=== PATIENT | female | born 1935 | race Caucasian/White ===

== ENCOUNTER 2017-02-13 11:58 | Outpatient (CLI) | payer MEDICARE, OTHER | END 2017-02-13 11:59 | disposition home or self-care (01) | DX: M19.041 Primary osteoarthritis, right hand (principal); M79.644 Pain in right finger(s) ==

== ENCOUNTER 2017-06-06 12:36 | Outpatient (CLI) | payer MEDICARE, OTHER ==
--- NOTE | 2017-06-09 07:31 | DEXA Report ---
DEXA SCAN: 06/06/2017 CLINICAL INDICATION: Postmenopausal. TECHNIQUE: Dual energy x-ray absorptiometry (DXA) was performed on a [employer] system. Regions measured are the AP spine, femoral neck, and, if needed, forearm. COMPARISON: None. In accordance with the International Society for Clinical Densitometry (ISCD) guidelines, data from previous exams may be reanalyzed using current recommendations and techniques. This is done to allow a more accurate basis for comparison with the current study. FINDINGS: The data for the lumbar spine is as follows: REGION BMD (g/cm/cm) T-SCORE Z-SCORE L1 1.102 -0.2 2.1 L2 1.151 -0.4 1.9 L3 1.047 -1.3 1.1 L4 1.143 -0.5 1.9 TOTAL 1.109 -0.6 1.8 NOTE: All evaluable vertebrae are used for classification. The data for the hip is as follows: REGION BMD (g/cm/cm) T-SCORE Z-SCORE Neck 0.908 -0.9 1.7 TOTAL 0.818 -1.5 1.0 NOTE: The femoral neck or total proximal femur, whichever is lowest, is used for classification. IMPRESSION: THE WHO CLASSIFICATION BASED ON THE INTERNATIONAL REFERENCE STANDARD IS OSTEOPENIA. THE FRACTURE RISK IS INCREASED. RECOMMENDATION: Patients with diagnosis of osteoporosis or osteopenia should have regular bone mineral density assessment. For those eligible for Medicare, routine testing is allowed once every 2 years. Testing frequency can be increased for patients who have rapidly progressing disease or for those who are receiving medical therapy to restore bone mass. COMMENT: World Health Organization (WHO) definitions for osteoporosis and osteopenia: NORMAL BMD: T-score at -1.0 or higher, fracture risk is low. OSTEOPENIA BMD: T-score between -1.0 and -2.5, fracture risk is increased. OSTEOPOROSIS BMD: T-score at -2.5 or lower, fracture risk high. National Osteoporosis Foundation recommends: 1. Obtain adequate dietary calcium (at least 1200 mg per day) and vitamin D (400 -800 international units per day). 2. Participate, as appropriate, in regular weightbearing and muscle- strengthening exercise. 3. Avoid tobacco use and reduce alcohol and caffeine intake. 4. For more detailed information see the website at www.NOF.org. MTDD
== END 2017-06-06 12:37 | disposition home or self-care (01) ==
LOC: DI 12:36
PROVIDERS: ATTEND Physician Assistant
DX: N95.8 Other specified menopausal and perimenopausal disorders (principal)
CPT/HCPCS: 77080

== ENCOUNTER 2017-06-06 12:36 | Outpatient (CLI) | payer MEDICARE, OTHER ==
--- NOTE | 2017-06-09 13:09 | Mammography Report ---
DIGITAL SCREENING MAMMOGRAM: 06/06/2017 CLINICAL INDICATION: An 81-year-old for screening. COMPARISON: 02/2016, 01/2016, 12/2014, 12/2013 TECHNIQUE: Routine CC and MLO projections were obtained of the breasts. FINDINGS: The breasts again demonstrate scattered fibroglandular densities bilaterally. There is a possible developing asymmetry in the right upper outer central breast. Further evaluation with spot compression views and possible ultrasound is recommended. No mammographically suspicious findings ar e appreciated in the left breast. IMPRESSION: INCOMPLETE EXAMINATION. RECOMMENDATION: Additional evaluation of the right breast as above. BIRADS CATEGORY 0 - INCOMPLETE. STANDARD QUALIFYING STATEMENTS 1. This examination was reviewed with the aid of Computer-Aided Detection (CAD). 2. A negative or benign imaging report should not delay biopsy if clinically suspicious findings are present. Consider surgical consultation if warranted. More than 5% of cancers are not identified by i maging. 3. Dense breasts may obscure an underlying neoplasm. JOB #: [id number] EXT JOB #:[id number]
== END 2017-06-06 12:37 | disposition home or self-care (01) ==
LOC: DI 12:36
PROVIDERS: ATTEND Physician Assistant
DX: Z12.31 Encounter for screening mammogram for malignant neoplasm of breast (principal)
CPT/HCPCS: 77067

== ENCOUNTER 2017-07-07 14:21 | Outpatient (CLI) | payer MEDICARE, OTHER ==
--- NOTE | 2017-07-07 14:53 | Mammography Report ---
DIGITAL DIAGNOSTIC RIGHT MAMMOGRAM: 07/07/2017 CLINICAL INDICATION: Possible asymmetry on screening. TECHNIQUE: Right true lateral and spot compression views. COMPARISON: 06/06/2017, 03/01/2016, 02/13/2016, 01/12/2015, 01/11/2014 FINDINGS: The right breast again demonstrates scattered fibroglandular densities. The questioned as ymmetry in the right upper outer central breast does not persist on additional compression. No under lying mass lesion or architectural distortion is seen. IMPRESSION: NEGATIVE EXAMINATION. RECOMMENDATION: Routine annual screening unless otherwise clinically indicated. BIRADS CATEGORY 1 - NEGATIVE. STANDARD QUALIFYING STATEMENTS 1. This examination was reviewed with the aid of Computer-Aided Detection (CAD). 2. A negative or benign imaging report should not delay biopsy if clinically suspicious findings are present. Consider surgical consultation if warranted. More than 5% of cancers are not identified by i maging. 3. Dense breasts may obscure an underlying neoplasm. JOB #: [id number] EXT JOB #:
== END 2017-07-07 14:22 | disposition home or self-care (01) ==
LOC: DI 14:21
PROVIDERS: ATTEND Physician Assistant
DX: R92.8 Other abnormal and inconclusive findings on diagnostic imaging of breast (principal)

== ENCOUNTER 2017-07-15 14:12 | Outpatient (CLI) | payer MEDICARE, OTHER ==
--- NOTE | 2017-07-15 17:58 | XRAY Report ---
CHEST, TWO VIEWS: 07/15/2017 HISTORY: Short of breath. COMPARISON: None. FINDINGS: The heart size is top normal. The lungs are clear. There is no pleural effusion or pneum othorax. 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 Degenerative change in t he upper lumbar spine. IMPRESSION: NORMAL HEART SIZE. CLEAR LUNGS. NO ACUTE FINDINGS. JOB #: [id number] EXT JOB #:[id number]
== END 2017-07-15 14:13 | disposition home or self-care (01) ==
LOC: DI.S 14:12
PROVIDERS: ATTEND Physician Assistant
DX: R06.02 Shortness of breath (principal); R63.4 Abnormal weight loss
CPT/HCPCS: 71020

== ENCOUNTER 2017-09-22 10:47 | Outpatient (CLI) | payer MEDICARE, OTHER ==
--- NOTE | 2017-09-22 14:10 | CT Report ---
CT OF THE LUMBAR SPINE WITHOUT CONTRAST: 09/22/2017 CLINICAL INDICATION: Leg pain. TECHNIQUE: Axial CT images of the lumbar spine were obtained without intravenous contrast, following which sagittal and coronal reconstructions were performed. FINDINGS: Degenerative disk and facet disease is present. There is no evidence of compression fractu re or subluxation. The T12-L1 disk is unremarkable. At L1-2, there is mild disk osteophyte, without significant spinal or foraminal narrowing. At L2-3, there is mild disk osteophyte, without significant spinal or foraminal narrowing. At L3-4, there is mild disk osteophyte, without significant spinal or foraminal narrowing. At L4-5, there is moderate broad-based disk bulge, without significant spinal or foraminal narrowing. The L5-S1 disk is unremarkable. IMPRESSION: DISK OSTEOPHYTES NOTED ABOVE. NO SIGNIFICANT SPINAL OR FORAMINAL NARROWING IS APPRECI ATED. NO EVIDENCE OF FRACTURE OF THE LUMBAR SPINE. In accordance with CT protocol optimization, one or more of the following dose reduction techniques w ere utilized for this exam: automated exposure control, adjustment of mA and/or KV based on patient size, or use of iterative reconstructive technique. JOB #: [id number] EXT JOB #:[id number]
== END 2017-09-22 10:48 | disposition home or self-care (01) ==
LOC: DI 10:47
PROVIDERS: ATTEND Internal Medicine
DX: M47.896 Other spondylosis, lumbar region (principal); M51.36 Other intervertebral disc degeneration, lumbar region
CPT/HCPCS: 72131

== ENCOUNTER 2017-10-09 12:21 | Outpatient (CLI) | payer MEDICARE, OTHER ==
--- NOTE | 2017-10-09 16:25 | Ultrasound Report ---
EXAM: Bilateral Lower Extremity Arterial Doppler Ultrasound EXAM DATE: 10/09/2017 01:08 PM. CLINICAL HISTORY: Cold periphery, bilateral lower extremities. History of hypertension. COMPARISON: None. TECHNIQUE: Real-time sonographic vascular imaging was performed by the recruitment and outreach assistant, utilizing color-f low, Doppler flow, and spectral analysis. Multiple credit representative static images were saved for review . FINDINGS: Moderate scattered atherosclerotic plaque in bilateral lower extremities. RIGHT LEG: EPIC AMBULATORY ANALYSTS: PSV 77 cm/sec. Triphasic waveform. PSFA: PSV 60 cm/sec. Biphasic waveform. MSFA: PSV 123 cm/sec. Biphasic waveform. DSFA: PSV 66 cm/sec. Biphasic waveform. PFA: PSV 59 cm/sec. Biphasic waveform. POP: PSV 57 cm/sec. Biphasic waveform. LAVERNE: PSV 29 cm/sec. Biphasic waveform. WET CROWN BLOCKING OPERATOR: PSV 20 cm/sec. Biphasic waveform. PER: PSV 100 cm/sec. Biphasic waveform. DPA: PSV 20 cm/sec. Biphasic waveform. LEFT LEG: EPIC AMBULATORY ANALYSTS: PSV 76 cm/sec. Biphasic waveform. PSFA: PSV 61 cm/sec. Biphasic waveform. MSFA: PSV 83 cm/sec. Biphasic waveform. DSFA: PSV 72 cm/sec. Biphasic waveform. PFA: PSV 86 cm/sec. Triphasic waveform. POP: PSV 64 cm/sec. Biphasic waveform. LAVERNE: PSV 44 cm/sec. Biphasic waveform. WET CROWN BLOCKING OPERATOR: PSV 46 cm/sec. Biphasic waveform. PER: PSV 62 cm/sec. Biphasic waveform. DPA: PSV 20 cm/sec. Biphasic waveform. IMPRESSION: 1. No hemodynamic significant stenosis within the right or left lower extremity arteries. [facility] Referring Provider Line: [phone] SITE ID: [id number]
--- NOTE | 2017-10-09 21:28 | Ultrasound Report ---
EXAM: BILATERAL LOWER EXTREMITY VENOUS ULTRASOUND EXAM DATE: 10/09/2017 03:11 PM. CLINICAL HISTORY: Cold peripheral, bilateral lower extremities. COMPARISON: None. TECHNIQUE: Real-time sonographic vascular imaging was performed by the financial management analyst through the lower extremities utilizing both color-flow and Doppler spectral analysis. Multiple product support representative static i mages were saved for review. FINDINGS: Right: Common Femoral Vein (CFV): Normal. CFV-GSV Junction: Normal. Profunda Femoral Vein (PFV): Normal. Femoral Vein (FV) Prox: Normal. Femoral Vein (FV) Mid: Normal. Femoral Vein (FV) Dist: Normal. Popliteal Vein: Normal. Posterior Tibial Veins: Normal. Peroneal Veins: Normal. Left: Common Femoral Vein (CFV): Normal. CFV-GSV Junction: Normal. Profunda Femoral Vein (PFV): Normal. Femoral Vein (FV) Prox: Normal. Femoral Vein (FV) Mid: Normal. Femoral Vein (FV) Dist: Normal. Popliteal Vein: Normal. Posterior Tibial Veins: Normal. Peroneal Veins: Normal. Other: None. IMPRESSION: No evidence for deep venous thrombosis bilaterally. [facility] Referring Provider Line: [phone] SITE ID: [id number]
== END 2017-10-09 12:22 | disposition home or self-care (01) ==
LOC: DI 12:21
PROVIDERS: ATTEND Physician Assistant
DX: R20.8 Other disturbances of skin sensation (principal); R09.89 Other specified symptoms and signs involving the circulatory and respiratory systems
CPT/HCPCS: 93925; 93970

== ENCOUNTER 2018-01-29 16:14 | Outpatient (CLI) | payer MEDICARE, OTHER ==
--- NOTE | 2018-01-29 17:16 | XRAY Report ---
EXAM: CHEST RADIOGRAPHY EXAM DATE: 01/29/2018 04:32 PM. CLINICAL HISTORY: Productive cough for 4 days. Fever. Shortness of breath COMPARISON: 07/15/2017. TECHNIQUE: 2 views. FINDINGS: Lungs/Pleura: No focal opacities evident. No pleural effusion. No pneumothorax. Hyperinflated lungs. Mediastinum: Heart and mediastinal contours are unremarkable. Other: No compression fractures. IMPRESSION: Clear hyperinflated lungs. [facility] Referring Provider Line: [phone] SITE ID: [id number]
== END 2018-01-29 16:15 | disposition home or self-care (01) ==
LOC: DI.S 16:14
PROVIDERS: ATTEND Physician Assistant
DX: R05 Cough (principal); R06.02 Shortness of breath; R50.9 Fever, unspecified
CPT/HCPCS: 71046

== ENCOUNTER 2018-03-20 10:29 | Outpatient (CLI) | payer MEDICARE, OTHER ==
[2018-03-20] MEDS ORDERED: BARIUM SULFATE 135 ML BOTTLE PO ONE (11:09)
[2018-03-20] MEDS ORDERED: BARIUM SULFATE 148 GM POWDER PO ONE (11:09)
--- NOTE | 2018-03-20 17:12 | XRAY Report ---
ESOPHAGRAM: 03/20/2018 CLINICAL INDICATION: Difficulty swallowing, dysphagia. FINDINGS: Esophagram was performed in the upright and prone positions. The esophagus is normal in caliber. Tertiary contractions are seen. No ulceration, mass lesion, or stricturing is present. Penetration to the level of the cords was noted, without martine aspiration. A 13 mm barium pill passed freely through the esophagus and into the stomach. A small amount of gastroesophageal reflux was visualized during the course of the study. No hiatal hernia is seen. IMPRESSION: PRESBYESOPHAGUS. SMALL AMOUNT OF REFLUX. NO EVIDENCE OF ULCERATION OR MASS LESION. FLUOROSCOPY TIME: 2 minutes 25 seconds; 17 spot images obtained. TD: 03/20/2018 11:57
== END 2018-03-20 10:30 | disposition home or self-care (01) ==
LOC: DI 10:29
PROVIDERS: ATTEND Physician Assistant
DX: K22.8 Other specified diseases of esophagus (principal); K21.9 Gastro-esophageal reflux disease without esophagitis
CPT/HCPCS: 74220; A9270

== ENCOUNTER 2018-04-21 20:09 | Emergency (ER) | payer MEDICARE, OTHER ==
--- NOTE | 2018-04-21 20:31 | ED Physician Documentation ---
History of Present Illness - Stated complaint Stated Complaint: SOA/WEAKNESS - Chief complaint Chief Complaint: General - History obtained from History obtained from: Patient, Family - History of Present Illness Timing: Chronic Pain level max: 0 Pain level now: 0 Improved by: no ameliorating factors Worsened by: no exacerbating factors - Additonal information Additional information: presents via private vehicle (driven to ED by family) with multiple c/o: difficulty breathing, generalized weakness (particularly arms and legs, with resulting difficulty ambulating without assistance), difficulty swallowing ( says liquids and foods also sometimes "comes out of nose" when trying to swallow ), "can't see" (patient states, then clarifies she has double-vision at times), palpitations. These symptoms have been ongoing for several months and she has had extensive testing and seen multiple specialists. Her diagnoses include ocular myasthenia gravis and MAC. She was evaluated by her PMD four days ago ( saw covering physician), and has follow-up appointments already scheduled with pulmonology (04/24) and neurology (04/27). Review of Systems Constitutional: reports: Fatigue. denies: Fever, Chills, Sweats Eyes: reports: Other (diplopia) Cardiac: reports: Palpitations (describes skipped beats) Respiratory: reports: Dyspnea. denies: Cough PD PAST MEDICAL HISTORY - Past Medical History Past Medical History: Yes Neuro: Other (ocular myasthenia gravis) Other Past Medical History: mycobacterium avium complex pneumonia - Allergies Allergies/Adverse Reactions: Allergies Allergy/AdvReac Type Severity Reaction Status Date / Time aspirin Allergy Anaphylaxis Verified 04/21/18 20:22 Penicillins AdvReac Rash Verified 04/21/18 20:22 prednisone AdvReac Unknown Verified 04/21/18 20:23 - Living Situation Living Situation: reports: With family Living Arrangement: reports: At home - Social History Does the pt smoke?: No PD ED PE NORMAL - Vitals Vital signs reviewed: Yes - General General: Alert and oriented X 3, No acute distress, Well developed/nourished - HEENT HEENT: Moist mucous membranes, Pharynx benign - Neck Neck: Supple, no meningeal sign - Cardiac Cardiac: RRR, No murmur - Respiratory Respiratory: No respiratory distress, Clear bilaterally - Abdomen Abdomen: Soft, Non tender - Derm Derm: Normal color, Warm and dry - Extremities Extremities: No edema - Neuro Neuro: Alert and oriented X 3, No motor deficit, No sensory deficit, Normal speech Eye Opening: Spontaneous Motor: Obeys Commands Verbal: Oriented GCS Score: 15 Results - Vitals Vitals: Vital Signs - 24 hr 04/21/18 04/21/18 04/21/18 20:18 22:02 23:30 Temperature 36.9 C 36.4 C L Heart Rate 108 H 93 Respiratory 16 20 18 Rate Blood Pressure 222/122 H 139/84 H O2 Saturation 100 99 98 04/21/18 23:31 Temperature Heart Rate 102 H Respiratory Rate Blood Pressure 180/88 H O2 Saturation Oxygen O2 Source Room air - EKG (time done) No standard instances Rate: Rate (enter#) (109), Tachy Rhythm: Sinus tachycardia Intervals: Normal TN QRS: LVH Ischemia: Q waves (V1, V2) Other comments: Other comments (PACs) - Labs Labs: Laboratory Tests 04/21/18 04/21/18 04/21/18 20:31 20:31 20:31 WBC 9.0 RBC 5.07 Hgb 16.3 H Hct 49.5 H MCV 97.5 MCH 32.1 H MCHC 32.9 RDW 14.4 Plt Count 254 MPV 7.8 L Neut # (Auto) 7.3 H Lymph # (Auto) 1.0 L Pine # (Auto) 0.6 Eos # (Auto) 0.0 Baso # (Auto) 0.1 Absolute Nucleated RBC 0.00 Nucleated RBC % 0.0 Sodium 132 L Potassium 4.2 Chloride 92 L Carbon Dioxide 26 Anion Gap 14.0 H BUN 10 Creatinine 0.8 Estimated GFR (MDRD) 68 L Glucose 124 H Calcium 9.6 Total Bilirubin 1.0 AST 25 ALT 15 Alkaline Phosphatase 65 Troponin I 0.04 B-Natriuretic Peptide Total Protein 8.3 H Albumin 4.2 Globulin 4.1 Albumin/Globulin Ratio 1.0 Lipase 33 TSH Urine Color Urine Clarity Urine pH Ur Specific [place] Urine Protein Urine Glucose (UA) Urine Ketones Urine Occult Blood Urine Nitrite Urine Bilirubin Urine Urobilinogen Ur Leukocyte Esterase Urine RBC Urine WBC Ur Squamous Epith Cells Urine Crystals Urine Bacteria Ur Microscopic Review Urine Culture Comments 04/21/18 04/21/18 04/21/18 20:31 20:34 21:22 WBC RBC Hgb Hct MCV MCH MCHC RDW Plt Count MPV Neut # (Auto) Lymph # (Auto) Pine # (Auto) Eos # (Auto) Baso # (Auto) Absolute Nucleated RBC Nucleated RBC % Sodium Potassium Chloride Carbon Dioxide Anion Gap BUN Creatinine Estimated GFR (MDRD) Glucose Calcium Total Bilirubin AST ALT Alkaline Phosphatase Troponin I B-Natriuretic Peptide 74 Total Protein Albumin Globulin Albumin/Globulin Ratio Lipase TSH 15.40 H Urine Color YELLOW Urine Clarity SL. CLOUDY Urine pH 5.5 Ur Specific [place] 1.020 Urine Protein 30 H Urine Glucose (UA) NEGATIVE Urine Ketones 40 H Urine Occult Blood SMALL H Urine Nitrite NEGATIVE Urine Bilirubin NEGATIVE Urine Urobilinogen 0.2 (NORMAL) Ur Leukocyte Esterase NEGATIVE Urine RBC 0-5 Urine WBC 0-3 Ur Squamous Epith Cells RARE Squamous Urine Crystals 11-25 Ca Oxalate Urine Bacteria None Seen Ur Microscopic Review INDICATED Urine Culture Comments NOT INDICATED - Rads (name of study) chest xray Radiology: Prelim report reviewed, See rad report PD MEDICAL DECISION MAKING - ED course Complexity details: reviewed results, re-evaluated patient, considered differential, d/w patient, d/w family - Sepsis Event Vital Signs: Vital Signs - 24 hr 04/21/18 04/21/18 04/21/18 20:18 22:02 23:30 Temperature 36.9 C 36.4 C L Heart Rate 108 H 93 Respiratory 16 20 18 Rate Blood Pressure 222/122 H 139/84 H O2 Saturation 100 99 98 04/21/18 23:31 Temperature Heart Rate 102 H Respiratory Rate Blood Pressure 180/88 H O2 Saturation Oxygen O2 Source Room air Departure - Departure Disposition: 01 Home, Self Care Clinical Impression: Muscle weakness Condition: Good Instructions: ED Weakness [facility] Follow-Up: Mague Dugan PA [Primary Care Provider] - Discharge Date/Time: 04/21/18 23:35
[2018-04-21 20:39] LABS: BASOPHILS # (AUTO) 0.1 10^3/uL (0.0-0.1); BASOPHILS % (AUTO) 0.7 %; EOSINOPHILS % (AUTO) 0.5 %; HGB - HEMOGLOBIN 16.3 g/dL (12.0-16.0); LYMPHOCYTES % (AUTO) 11.4 %; MEAN CORPUSCULAR HEMOGLOBIN 32.1 pg (27.0-31.0); MEAN CORPUSCULAR HGB CONC 32.9 g/dL (32.0-36.0); MEAN CORPUSCULAR VOLUME 97.5 fL (81.0-99.0); MEAN PLATELET VOLUME 7.8 fL (7.9-10.8); MONOCYTES # (AUTO) 0.6 10^3/uL (0.0-1.0); MONOCYTES % (AUTO) 6.1 %; NEUTROPHILS # (AUTO) 7.3 10^3/uL (1.5-6.6); NEUTROPHILS % (AUTO) 81.3 %; PLT - PLATELET COUNT 254 10^3/uL (130-450); RED BLOOD COUNT 5.07 10^6/uL (4.20-5.40); RED CELL DISTRIBUTION WIDTH 14.4 % (12.0-15.0)
[2018-04-21 20:50] LABS: ALBUMIN 4.2 g/dL (3.2-5.5); CALCIUM 9.6 mg/dL (8.5-10.3); CREATININE 0.8 mg/dL (0.4-1.0); TOTAL PROTEIN 8.3 g/dL (6.7-8.2)
--- NOTE | 2018-04-21 21:38 | XRAY Report ---
Procedure Date: 04/21/2018 Accession Number: [id number] Procedure: XR - Chest 2 View X-Ray CPT Code: 52700 FULL RESULT: EXAM: CHEST RADIOGRAPHY EXAM DATE: 04/21/2018 09:14 PM. CLINICAL HISTORY: Dyspnea. COMPARISON: 01/29/2018. TECHNIQUE: 2 views. FINDINGS: Lungs/Pleura: No focal opacities evident. No pleural effusion. No pneumothorax. Lungs are hyperinflated. Mediastinum: Heart and mediastinal contours are unremarkable. Other: None. IMPRESSION: No acute cardiopulmonary abnormality. [facility]
[2018-04-21 21:48] LABS: GLUCOSE, URINE (UA) NEGATIVE (NEGATIVE); KETONES,URINE (UA) 40 mg/dL (NEGATIVE); LEUKOCYTE ESTERASE, URINE NEGATIVE (NEGATIVE); NITRITE,URINE NEGATIVE (NEGATIVE); OCCULT BLOOD,URINE SMALL (NEGATIVE); PH,URINE 5.5 PH (5.0-7.5); PROTEIN,URINE 30 mg/dL (NEGATIVE); UROBILINOGEN,URINE 0.2 (NORMAL) E.U./dL (NORMAL)
[2018-04-21 22:06] LABS: BILIRUBIN,URINE NEGATIVE (NEGATIVE); CLARITY,URINE SL. CLOUDY (CLEAR); ICTOTEST,URINE NEGATIVE
[2018-04-21 22:07] LABS: BACTERIA,URINE None Seen /HPF (None Seen); CRYSTALS,URINE 11-25 Ca Oxalate /LPF; RBC,URINE 0-5 /HPF (0-5); SQUAMOUS EPITHELIAL CELL,UR RARE Squamous (<= Few)
[2018-04-21 23:32] VITALS: BP 180/88
== END 2018-04-21 23:35 | disposition home or self-care (01) ==
LOC: ED 20:09
DX: M62.81 Muscle weakness (generalized) (principal); R00.0 Tachycardia, unspecified; G70.00 Myasthenia gravis without (acute) exacerbation
CPT/HCPCS: 36415; 71046; 80053; 81001; 81003; 83690; 83880; 84443; 84484; 85025; 87086; 93005; 99283; 99284

== ENCOUNTER 2018-04-24 07:34 | Outpatient (CLI) | payer MEDICARE, OTHER | END 2018-04-24 07:35 | disposition short-term general hospital (02) | LOC: EMS 07:34 | PROVIDERS: ATTEND Surgery | DX: R06.02 Shortness of breath (principal) | CPT/HCPCS: A0425; A0427 ==